=== PATIENT | female | born 1970 | race Caucasian/White ===

== ENCOUNTER 2021-05-07 09:40 | Emergency (ER) | payer OTHER ==
[2021-05-07 10:33] LABS: #Basophils 0.1 10x3/uL (0.0-0.2); #Eosinphils 0.2 10x3/uL (0.0-0.5); #Monocytes 0.5 10x3/uL (0.0-1.1); #Neutrophils 5.1 10x3/uL (1.5-8.4); %Basophils 0.7 % (0.0-2.0); %Eosinophils 2.8 % (0.0-6.0); %Lymphocytes 17.5 % (18.0-47.0); %Neutrophils 71.6 % (40.0-75.0); Hemoglobin 11.4 g/dL (12.0-15.5); Mean Corpuscular HGB CONC 31.5 g/dL (32.0-36.0); Mean Corpuscular Hemoglobin 25.3 pg (27.0-33.0); Mean Corpuscular Volume 80.3 fl (81.6-98.3); Mean Platelet Volume 8.7 fl (7.4-10.4); Platelet Count 336 10x3/uL (150-450); RBC Distribution Width 14.8 % (11.5-14.5); Red Blood Cell (RBC) Count 4.51 10x6/uL (3.90-5.03); White Blood Cell (WBC) Count 7.2 10x3/uL (3.5-10.5)
[2021-05-07 10:47] LABS: ALT (SGPT) Less than 6 U/L (8-55); AST (SGOT) 19 U/L (5-34); Alkaline Phosphatase 96 U/L (40-110); Anion Gap 15 mmol/L (10-20); BUN (Urea Nitrogen) 11 mg/dL (7.0-18.7); Bilirubin, Total 0.3 mg/dL (0.2-1.2); Calc. Creatinine Clearance 0 mL/min (70-130); Calcium 9.2 mg/dL (7.8-10.44); Carbon Dioxide 25 mmol/L (22-29); Chloride 100 mmol/L (98-107); Globulin 3.7 g/dL (2.4-3.5); Glucose 260 mg/dL (70-105); Potassium 3.9 mmol/L (3.5-5.1); Protein, Total 7.7 g/dL (6.0-8.3); Sodium 136 mmol/L (136-145)
[2021-05-07 20:20] LABS: SARS-CoV-2 PCR by NAA Not Detected (NotDetected)
== END 2021-05-07 13:10 | disposition home or self-care (01) ==
LOC: CSHERS 09:40
DX: J45.901 Unspecified asthma with (acute) exacerbation (principal); J06.9 Acute upper respiratory infection, unspecified; E11.9 Type 2 diabetes mellitus without complications; I10 Essential (primary) hypertension; Z20.822 Contact with and (suspected) exposure to COVID-19; Z79.84 Long term (current) use of oral hypoglycemic drugs; Z79.899 Other long term (current) drug therapy
CPT/HCPCS: 71045; 80053; 85025; 87804; 93005; 94640; J7620; U0003; U0005

== ENCOUNTER 2022-03-09 12:18 | Emergency (ER) | payer OTHER ==
[2022-03-09] MEDS ORDERED: Diazepam 5 MG TAB ONE (15:31)
[2022-03-09] MEDS ORDERED: Morphine 4 MG/ML VIAL ONE (15:32)
[2022-03-09 16:05] LABS: #Basophils 0.1 10x3/uL (0.0-0.2); #Eosinphils 0.1 10x3/uL (0.0-0.5); #Monocytes 0.5 10x3/uL (0.0-1.1); #Neutrophils 6.8 10x3/uL (1.5-8.4); %Basophils 0.5 % (0.0-2.0); %Eosinophils 0.8 % (0.0-6.0); %Lymphocytes 24.2 % (18.0-47.0); %Monocytes 5.3 % (0.0-10.0); %Neutrophils 68.8 % (40.0-75.0); Hemoglobin 10.7 g/dL (12.0-15.5); Mean Corpuscular HGB CONC 32.3 g/dL (32.0-36.0); Mean Corpuscular Hemoglobin 26.2 pg (27.0-33.0); Mean Corpuscular Volume 80.9 fl (81.6-98.3); Platelet Count 362 10x3/uL (150-450); RBC Distribution Width 13.4 % (11.5-14.5); Red Blood Cell (RBC) Count 4.09 10x6/uL (3.90-5.03)
[2022-03-09 16:16] LABS: ALT (SGPT) Less than 6 U/L (8-55); AST (SGOT) 11 U/L (5-34); Albumin 4.2 g/dL (3.5-5.0); Alkaline Phosphatase 81 U/L (40-110); Anion Gap 15 mmol/L (10-20); BUN (Urea Nitrogen) 15 mg/dL (7.0-18.7); Bilirubin, Total 0.3 mg/dL (0.2-1.2); Calc. Creatinine Clearance 0 mL/min (70-130); Calcium 9.8 mg/dL (7.8-10.44); Carbon Dioxide 26 mmol/L (22-29); Chloride 100 mmol/L (98-107); Estimated GFR 63; Globulin 3.4 g/dL (2.4-3.5); Glucose 182 mg/dL (70-105); Potassium 3.6 mmol/L (3.5-5.1); Protein, Total 7.6 g/dL (6.0-8.3); Sodium 137 mmol/L (136-145)
[2022-03-09] MEDS ORDERED: Acetaminophen 500 MG TAB ONE (18:13)
[2022-03-09] MEDS ORDERED: Ketorolac Tromethamine 30 MG/ML VIAL ONE (18:14)
[2022-03-09] MEDS ORDERED: Diazepam 10 MG/2 ML SYRINGE ONE (19:41)
== END 2022-03-09 23:32 | disposition home or self-care (01) ==
LOC: CSHERS 12:18
DX: M51.36 Other intervertebral disc degeneration, lumbar region (principal); R70.0 Elevated erythrocyte sedimentation rate; E11.9 Type 2 diabetes mellitus without complications; J45.909 Unspecified asthma, uncomplicated; I10 Essential (primary) hypertension
CPT/HCPCS: 72156; 72157; 72158; 80053; 85025; 85652; 86140; J1885; J2270; J3360

== ENCOUNTER 2022-03-16 14:20 | Inpatient (IN) | payer OTHER ==
[2022-03-16 15:14] LABS: ALT (SGPT) Less than 6 U/L (8-55); AST (SGOT) 10 U/L (5-34); Alkaline Phosphatase 77 U/L (40-110); Anion Gap 14 mmol/L (10-20); BUN (Urea Nitrogen) 12 mg/dL (7.0-18.7); Bilirubin, Total 0.3 mg/dL (0.2-1.2); Calc. Creatinine Clearance 0 mL/min (70-130); Calcium 9.3 mg/dL (7.8-10.44); Carbon Dioxide 24 mmol/L (22-29); Chloride 104 mmol/L (98-107); Estimated GFR 65; Globulin 2.9 g/dL (2.4-3.5); Glucose 253 mg/dL (70-105); Protein, Total 6.9 g/dL (6.0-8.3); Sodium 138 mmol/L (136-145)
[2022-03-16 15:24] LABS: #Basophils 0.1 10x3/uL (0.0-0.2); #Eosinphils 0.1 10x3/uL (0.0-0.5); #Monocytes 0.4 10x3/uL (0.0-1.1); #Neutrophils 4.1 10x3/uL (1.5-8.4); %Basophils 0.8 % (0.0-2.0); %Eosinophils 1.7 % (0.0-6.0); %Lymphocytes 28.6 % (18.0-47.0); %Monocytes 5.7 % (0.0-10.0); %Neutrophils 62.7 % (40.0-75.0); Hemoglobin 10.2 g/dL (12.0-15.5); Mean Corpuscular HGB CONC 31.9 g/dL (32.0-36.0); Mean Corpuscular Volume 81.4 fl (81.6-98.3); Mean Platelet Volume 9.4 fl (7.4-10.4); Platelet Count 339 10x3/uL (150-450); RBC Distribution Width 13.6 % (11.5-14.5); Red Blood Cell (RBC) Count 3.93 10x6/uL (3.90-5.03); White Blood Cell (WBC) Count 6.5 10x3/uL (3.5-10.5)
[2022-03-16 16:12] LABS: Bilirubin Neg (Negative); Blood, Urine Negative (Negative); Glucose, Urine (Dipstick) 250 mg/dL (Negative); Ketone, Urine Negative (Negative); Leukocyte Negative (Negative); Nitrite Negative (Negative); Protein, Urine (Dipstick) Negative (Neg-Trace); Urobilinogen Normal mg/dL (Less than 2)
[2022-03-16 16:13] LABS: Clarity Clear (Clear)
[2022-03-16] MEDS ORDERED: Guaifenesin DM 100-10/5 ML UDCUP PO PRN (17:14)
[2022-03-16] MEDS ORDERED: Ondansetron PF 4 MG/2 ML Vial IVP PRN (17:14)
[2022-03-16] MEDS ORDERED: Senokot S 8.6-50 MG TAB PO PRN (17:14)
[2022-03-16] MEDS ORDERED: Dextrose 50% Abboject 50 ML SYRINGE SLOW IVP PRN (17:41)
[2022-03-16] MEDS ORDERED: Dextrose 5% in Water 1,000 ML IV PRN (17:41)
[2022-03-16 19:59] VITALS: BMI 35.6
[2022-03-16] MEDS: Gabapentin 300 MG CAP PO SCH (20:55)
[2022-03-16] MEDS: Losartan Potassium 50 MG TAB PO SCH (20:56)
[2022-03-16] MEDS ORDERED: Famotidine/PF 20 mg/2ml Vial SLOW IVP SCH (21:00)
[2022-03-16] MEDS: HYDROcodone/Acetaminophen 5/325 mg Tablet PO PRN (21:05)
[2022-03-16 22:02] LABS: Bilirubin Neg (Negative); Blood, Urine Negative (Negative); Clarity Clear (Clear); Glucose, Urine (Dipstick) 100 mg/dL (Negative); Ketone, Urine Negative (Negative); Leukocyte Negative (Negative); Nitrite Negative (Negative); Protein, Urine (Dipstick) Negative (Neg-Trace); Specific Gravity, Urine 1.015 (1.005-1.030); Urobilinogen Normal mg/dL (Less than 2)
[2022-03-16 22:21] LABS: Bacteria/HPF Rare-Few HPF (None Seen); RBC/HPF 0-3 HPF (0-3); Squamous Epithelial 0-3 HPF (0-3); WBC/HPF 0-3 HPF (0-3)
[2022-03-16 23:49] LABS: SARS-CoV-2 NAA Rapid Test Not Detected (NotDetected)
[2022-03-17] MEDS: HYDROcodone/Acetaminophen 5/325 mg Tablet PO PRN ×3 (02:44→17:21)
[2022-03-17 04:35] LABS: #Basophils 0.1 10x3/uL (0.0-0.2); #Eosinphils 0.1 10x3/uL (0.0-0.5); #Monocytes 0.3 10x3/uL (0.0-1.1); #Neutrophils 3.3 10x3/uL (1.5-8.4); %Basophils 0.8 % (0.0-2.0); %Lymphocytes 36.9 % (18.0-47.0); %Monocytes 5.3 % (0.0-10.0); %Neutrophils 54.7 % (40.0-75.0); Hemoglobin 9.6 g/dL (12.0-15.5); Mean Corpuscular HGB CONC 31.7 g/dL (32.0-36.0); Mean Corpuscular Hemoglobin 25.8 pg (27.0-33.0); Mean Corpuscular Volume 81.5 fl (81.6-98.3); Mean Platelet Volume 8.8 fl (7.4-10.4); Platelet Count 270 10x3/uL (150-450); RBC Distribution Width 13.5 % (11.5-14.5); Red Blood Cell (RBC) Count 3.72 10x6/uL (3.90-5.03)
[2022-03-17 04:55] LABS: Anion Gap 13 mmol/L (10-20); BUN (Urea Nitrogen) 11 mg/dL (7.0-18.7); Calc. Creatinine Clearance 98 mL/min (70-130); Carbon Dioxide 27 mmol/L (22-29); Cardiac Risk 2.8 (Less than 4.5); Chloride 105 mmol/L (98-107); Cholesterol 128 mg/dl (< 200 Desired); Estimated GFR 72; Glucose 131 mg/dL (70-105); HDL Cholesterol 46 mg/dL (>60 Neg Risk); LDL Cholesterol, Calculated 64 mg/dL; Potassium 3.8 mmol/L (3.5-5.1); Sodium 141 mmol/L (136-145); Triglycerides 92 mg/dL (Less than 150)
[2022-03-17] MEDS: Gabapentin 300 MG CAP PO SCH ×4 (09:32→20:28)
[2022-03-17] MEDS: Enoxaparin Sodium 40 MG/0.4 ML SYRINGE SC SCH (09:32)
[2022-03-17] MEDS ORDERED: Lorazepam 2 MG/ML VIAL SLOW IVP PRN (10:30)
[2022-03-17] MEDS ORDERED: Lorazepam 2 MG/ML VIAL ONE (12:31)
[2022-03-17 13:36] LABS: Hemoglobin A1c 9.4 % (4.0-6.0)
[2022-03-17] MEDS ORDERED: hydrOXYzine 25 MG TAB PO PRN (14:21)
[2022-03-17] MEDS ORDERED: tiZANidine HCl 4 MG TAB PO PRN (14:27)
[2022-03-17] MEDS: metFORMIN 500 MG TAB PO SCH (16:37)
[2022-03-17] MEDS: HumaLOG 300 UNITS/3 ML VIAL SC PRN ×2 (17:20→20:33)
[2022-03-17] MEDS: Simvastatin 10 MG TAB PO SCH (20:28)
[2022-03-17] MEDS: glipiZIDE 5 MG TAB PO SCH (20:29)
[2022-03-17] MEDS: Losartan Potassium 50 MG TAB PO SCH (20:29)
[2022-03-18 06:07] LABS: Anion Gap 13 mmol/L (10-20); BUN (Urea Nitrogen) 11 mg/dL (7.0-18.7); Calc. Creatinine Clearance 104 mL/min (70-130); Carbon Dioxide 26 mmol/L (22-29); Chloride 105 mmol/L (98-107); Estimated GFR 78; Glucose 124 mg/dL (70-105); Potassium 3.7 mmol/L (3.5-5.1); Sodium 140 mmol/L (136-145)
[2022-03-18] MEDS: HYDROcodone/Acetaminophen 5/325 mg Tablet PO PRN ×3 (08:36→19:56)
[2022-03-18] MEDS: Gabapentin 300 MG CAP PO SCH ×4 (08:37→20:01)
[2022-03-18] MEDS: metFORMIN 500 MG TAB PO SCH ×4 (08:38→17:25)
[2022-03-18] MEDS: Hydrochlorothiazide 25 MG TAB PO SCH (08:38)
[2022-03-18] MEDS: glipiZIDE 5 MG TAB PO SCH ×2 (08:38→19:55)
[2022-03-18] MEDS: Multivit, Therapeutic 1 TAB PO SCH (08:38)
[2022-03-18] MEDS: Enoxaparin Sodium 40 MG/0.4 ML SYRINGE SC SCH (08:39)
[2022-03-18] MEDS: methylPREDNISolone Sod Succ 1,000 MG in Sodium Chloride 0.9% 250 ML 250 ML IVPB SCH (08:42)
[2022-03-18] MEDS ORDERED: methylPREDNISolone Sod Succ/PF 125 MG/2 ML VIAL IVP SCH (09:00)
[2022-03-18] MEDS ORDERED: Lidocaine 1% PF 5 ML VIAL ONE (09:27)
[2022-03-18] MEDS ORDERED: Sodium Bicarbonate 2.5 MEQ/5 ML VIAL ONE (09:27)
[2022-03-18] MEDS ORDERED: Midazolam HCl 2 mg/2 ml Vial ONE (10:56)
[2022-03-18] MEDS ORDERED: Fentanyl 100 MCG/2 ML VIAL ONE (10:56)
[2022-03-18] MEDS ORDERED: Lidocaine 1% (PF) 30 ML VIAL ONE (11:54)
[2022-03-18] MEDS: HumaLOG 300 UNITS/3 ML VIAL SC PRN ×3 (13:57→20:37)
[2022-03-18 13:59] LABS: CSF, Glucose 86 mg/dl (40-70); CSF, Protein 72 mg/dL (15-40)
[2022-03-18 14:27] LABS: CSF Source CSF; Clarity Clear (Clear)
[2022-03-18 14:28] LABS: CSF WBC/NonHematics Count-Man 1 /cu.mm (0-5); Tube # 1
[2022-03-18 14:29] LABS: CSF RBC Count - Manual 704 /cu.mm (None Seen)
[2022-03-18] MEDS ORDERED: hydrALAZINE 25 MG TAB PO SCH (17:45)
[2022-03-18] MEDS: hydrALAZINE 25 MG TAB PO SCH (19:54)
[2022-03-18] MEDS: Losartan Potassium 50 MG TAB PO SCH (19:54)
[2022-03-18] MEDS: Simvastatin 10 MG TAB PO SCH (19:57)
[2022-03-18] MEDS ORDERED: traMADol HCl 50 MG TAB PO SCH (23:00)
[2022-03-18] MEDS ORDERED: Pramipexole Di-HCl 0.25 MG TAB PO SCH (23:00)
[2022-03-19] MEDS: HumaLOG 300 UNITS/3 ML VIAL SC PRN ×5 (00:46→21:45)
[2022-03-19] MEDS: Multivit, Therapeutic 1 TAB PO SCH (09:55)
[2022-03-19] MEDS: Losartan Potassium 50 MG TAB PO SCH ×2 (09:55→21:40)
[2022-03-19] MEDS: hydrALAZINE 25 MG TAB PO SCH ×3 (09:55→21:38)
[2022-03-19] MEDS: methylPREDNISolone Sod Succ 1,000 MG in Sodium Chloride 0.9% 250 ML 250 ML IVPB SCH (09:56)
[2022-03-19] MEDS: metFORMIN 500 MG TAB PO SCH ×2 (09:56→16:40)
[2022-03-19] MEDS: Hydrochlorothiazide 25 MG TAB PO SCH (09:56)
[2022-03-19] MEDS: Gabapentin 300 MG CAP PO SCH ×4 (09:56→21:53)
[2022-03-19] MEDS: Enoxaparin Sodium 40 MG/0.4 ML SYRINGE SC SCH (09:56)
[2022-03-19] MEDS: glipiZIDE 5 MG TAB PO SCH ×3 (09:58→21:44)
[2022-03-19 10:15] LABS: DRVVT Confirm 38.3
[2022-03-19] MEDS: Simvastatin 10 MG TAB PO SCH (21:52)
[2022-03-20] MEDS: HumaLOG 300 UNITS/3 ML VIAL SC PRN ×4 (06:20→21:02)
[2022-03-20] MEDS: metFORMIN 500 MG TAB PO SCH ×2 (09:49→16:59)
[2022-03-20] MEDS: Enoxaparin Sodium 40 MG/0.4 ML SYRINGE SC SCH (09:49)
[2022-03-20] MEDS: glipiZIDE 5 MG TAB PO SCH ×2 (09:49→20:53)
[2022-03-20] MEDS: hydrALAZINE 25 MG TAB PO SCH ×3 (09:50→20:54)
[2022-03-20] MEDS: Hydrochlorothiazide 25 MG TAB PO SCH (09:50)
[2022-03-20] MEDS: Losartan Potassium 50 MG TAB PO SCH ×2 (09:50→20:55)
[2022-03-20] MEDS: Gabapentin 300 MG CAP PO SCH ×4 (09:50→20:53)
[2022-03-20] MEDS: Multivit, Therapeutic 1 TAB PO SCH (09:50)
[2022-03-20] MEDS: methylPREDNISolone Sod Succ 1,000 MG in Sodium Chloride 0.9% 250 ML 250 ML IVPB SCH (09:53)
[2022-03-20] MEDS ORDERED: Lantus 1000 UNITS/10 ML VIAL SC SCH ×2 (10:15→21:00)
[2022-03-20] MEDS: Simvastatin 10 MG TAB PO SCH (20:55)
[2022-03-21] MEDS: HumaLOG 300 UNITS/3 ML VIAL SC PRN ×2 (06:10→12:13)
[2022-03-21] MEDS ORDERED: hydrALAZINE 25 MG TAB PO SCH ×2 (07:00→15:00)
[2022-03-21] MEDS ORDERED: Losartan Potassium 50 MG TAB PO SCH ×2 (07:00→21:00)
[2022-03-21] MEDS ORDERED: Hydrochlorothiazide 25 MG TAB PO SCH (07:00)
[2022-03-21] MEDS: glipiZIDE 5 MG TAB PO SCH (08:47)
[2022-03-21] MEDS: metFORMIN 500 MG TAB PO SCH (08:47)
[2022-03-21] MEDS: Gabapentin 300 MG CAP PO SCH ×2 (08:47→12:13)
[2022-03-21] MEDS: Multivit, Therapeutic 1 TAB PO SCH (08:47)
[2022-03-21] MEDS: Enoxaparin Sodium 40 MG/0.4 ML SYRINGE SC SCH (08:47)
[2022-03-21] MEDS ORDERED: NIFEdipine XL 60 MG TAB PO SCH (11:45)
[2022-03-21] MEDS ORDERED: Labetalol HCl 100 MG/20 ML VIAL SLOW IVP SCH (11:45)
[2022-03-21 13:26] VITALS: BP 140/84; TEMP 97.5
[2022-03-22] MEDS ORDERED: NIFEdipine XL 60 MG TAB PO SCH (09:00)
[2022-03-22] MEDS ORDERED: Hydrochlorothiazide 25 MG TAB PO SCH (09:00)
[2022-03-23 13:47] LABS: ANA Symphony (Qualitative) Negative (Negative); ANA Symphony (Quantitative) 0.2 Ratio (< 0.7 Negative); dsDNA IgG Antibody 2.1 IU/mL (<10 Negative)
== END 2022-03-21 15:11 | disposition home or self-care (01) | DRG 60 ==
LOC: CSHERS 14:20 → CSHTELE 18:40 → OBSVTOIN 03-18 14:22
PROVIDERS: ADMIT Hospitalist; ATTEND Family Medicine
PROC: 009U3ZX Drainage of Spinal Canal, Percutaneous Approach, Diagnostic (ICD-10-PCS; principal; 2022-03-18)
PROC: B01B1ZZ Fluoroscopy of Spinal Cord using Low Osmolar Contrast (ICD-10-PCS; 2022-03-18)
DX: G37.9 Demyelinating disease of central nervous system, unspecified (principal); I10 Essential (primary) hypertension; Z20.822 Contact with and (suspected) exposure to COVID-19; E11.42 Type 2 diabetes mellitus with diabetic polyneuropathy; F43.10 Post-traumatic stress disorder, unspecified; F41.9 Anxiety disorder, unspecified; F32.A Depression, unspecified; Z91.09 Other allergy status, other than to drugs and biological substances; Z79.84 Long term (current) use of oral hypoglycemic drugs; Z79.899 Other long term (current) drug therapy; Z83.3 Family history of diabetes mellitus; G89.4 Chronic pain syndrome; G35 Multiple sclerosis; Z56.0 Unemployment, unspecified; Z90.710 Acquired absence of both cervix and uterus; K21.9 Gastro-esophageal reflux disease without esophagitis; M51.36 Other intervertebral disc degeneration, lumbar region
CPT/HCPCS: 36415; 36416; 62270; 70450; 70553; 77002; 80048; 80053; 80061; 81003; 82945; 83036; 83873; 83916; 84157; 84484; 85025; 85613; 86038; 86225; 89051; 93005; 96372; 96374; 96375; 99152; 99153; G0378; J1650; J1815; J2001; J2060; J2250; J2930; J3010; J7050; U0002

== ENCOUNTER 2022-04-26 13:11 | Inpatient (IN) | payer OTHER ==
[2022-04-26 13:47] LABS: #Eosinphils 0.1 10x3/uL (0.0-0.5); #Monocytes 0.3 10x3/uL (0.0-1.1); #Neutrophils 4.5 10x3/uL (1.5-8.4); %Basophils 0.6 % (0.0-2.0); %Eosinophils 1.2 % (0.0-6.0); %Lymphocytes 25.3 % (18.0-47.0); %Monocytes 4.8 % (0.0-10.0); %Neutrophils 67.5 % (40.0-75.0); Mean Corpuscular Hemoglobin 25.9 pg (27.0-33.0); Mean Corpuscular Volume 81.1 fl (81.6-98.3); Mean Platelet Volume 9.1 fl (7.4-10.4); Platelet Count 360 10x3/uL (150-450); RBC Distribution Width 14.7 % (11.5-14.5); Red Blood Cell (RBC) Count 4.24 10x6/uL (3.90-5.03); White Blood Cell (WBC) Count 6.6 10x3/uL (3.5-10.5)
[2022-04-26 13:51] LABS: Bilirubin 1+ (Negative); Blood, Urine 10 (Negative); Clarity Clear (Clear); Glucose, Urine (Dipstick) >=1000 mg/dL (Negative); Ketone, Urine 5 mg/dL (Negative); Leukocyte Negative (Negative); Nitrite Negative (Negative); Protein, Urine (Dipstick) 30 mg/dl (Neg-Trace); Urobilinogen Normal mg/dL (Less than 2)
[2022-04-26 13:58] LABS: Bacteria/HPF Rare-Few HPF (None Seen); WBC/HPF 0-3 HPF (0-3)
[2022-04-26 13:59] LABS: CRP (Inflammatory) 2.06 mg/dL (= or < 0.5); Magnesium 1.5 mg/dL (1.6-2.6)
[2022-04-26 14:01] LABS: ALT (SGPT) Less than 6 U/L (8-55); AST (SGOT) 15 U/L (5-34); Albumin 4.3 g/dL (3.5-5.0); Alkaline Phosphatase 79 U/L (40-110); Anion Gap 16 mmol/L (10-20); BUN (Urea Nitrogen) 14 mg/dL (7.0-18.7); Bilirubin, Total 0.3 mg/dL (0.2-1.2); Calc. Creatinine Clearance 0 mL/min (70-130); Calcium 9.6 mg/dL (7.8-10.44); Carbon Dioxide 23 mmol/L (22-29); Chloride 104 mmol/L (98-107); Estimated GFR 50; Glucose 364 mg/dL (70-105); Protein, Total 7.3 g/dL (6.0-8.3); Sodium 139 mmol/L (136-145)
[2022-04-26] MEDS ORDERED: Morphine 4 MG/ML VIAL ONE (15:19)
[2022-04-26] MEDS ORDERED: methylPREDNISolone Sod Succ 1 GM in Sodium Chloride 0.9% 100 ML IVPB SCH (15:45)
[2022-04-26] MEDS ORDERED: Dextrose 5% in Water 1,000 ML IV PRN ×2 (17:09→19:51)
[2022-04-26] MEDS ORDERED: HumaLOG 300 UNITS/3 ML VIAL SC PRN ×3 (17:09→19:51)
[2022-04-26] MEDS ORDERED: Dextrose 50% Abboject 50 ML SYRINGE SLOW IVP PRN ×2 (17:09→19:51)
[2022-04-26] MEDS ORDERED: Insulin Regular 300 UNITS/3 ML VIAL ONE (18:08)
[2022-04-26] MEDS ORDERED: Milk Of Magnesia 30 ML UDCUP PO PRN (19:38)
[2022-04-26] MEDS ORDERED: Acetaminophen 325 MG TAB PO PRN (19:38)
[2022-04-26] MEDS ORDERED: Insulin Regular 300 UNITS/3 ML VIAL SC PRN (19:51)
[2022-04-26] MEDS ORDERED: Magnesium 2 GM/50 ML(in water) 2 GM in Premix Bag 1 BAG IVPB SCH (20:00)
[2022-04-26] MEDS: NIFEdipine XL 60 MG TAB PO SCH (21:49)
[2022-04-26] MEDS: Gabapentin 300 MG CAP PO SCH (21:49)
[2022-04-26] MEDS: Simvastatin 10 MG TAB PO SCH (21:50)
[2022-04-26] MEDS: Losartan Potassium 50 MG TAB PO SCH (21:50)
[2022-04-26] MEDS: glipiZIDE 10 MG TAB PO SCH (22:15)
[2022-04-26 22:39] VITALS: BMI 35.6
[2022-04-26] MEDS ORDERED: Baclofen 10 MG TAB PO SCH (23:00)
[2022-04-27] MEDS ORDERED: Dextrose 50% Abboject 50 ML SYRINGE SLOW IVP PRN (02:41)
[2022-04-27] MEDS ORDERED: Dextrose 5% in Water 1,000 ML IV PRN (02:41)
[2022-04-27] MEDS ORDERED: Insulin Regular 300 UNITS/3 ML VIAL IVP SCH ×3 (02:45→04:30)
[2022-04-27] MEDS ORDERED: Sodium Chloride 0.9% 1,000 ML IV SCH (02:45)
[2022-04-27] MEDS: HumaLOG 300 UNITS/3 ML VIAL SC PRN ×6 (02:57→20:59)
[2022-04-27 05:17] LABS: ALT (SGPT) Less than 6 U/L (8-55); AST (SGOT) 11 U/L (5-34); Albumin 3.5 g/dL (3.5-5.0); Alkaline Phosphatase 74 U/L (40-110); Anion Gap 15 mmol/L (10-20); BUN (Urea Nitrogen) 16 mg/dL (7.0-18.7); Bilirubin, Total 0.2 mg/dL (0.2-1.2); Calc. Creatinine Clearance 76 mL/min (70-130); Calcium 8.7 mg/dL (7.8-10.44); Carbon Dioxide 19 mmol/L (22-29); Chloride 107 mmol/L (98-107); Estimated GFR 53; Globulin 2.8 g/dL (2.4-3.5); Glucose 382 mg/dL (70-105); Magnesium 1.8 mg/dL (1.6-2.6); Potassium 3.2 mmol/L (3.5-5.1); Protein, Total 6.3 g/dL (6.0-8.3); Sodium 138 mmol/L (136-145)
[2022-04-27] MEDS ORDERED: Sodium Chloride 0.9% 100 ML ONE (07:59)
[2022-04-27] MEDS ORDERED: Baclofen 10 MG TAB PO SCH ×2 (09:00→17:30)
[2022-04-27] MEDS ORDERED: methylPREDNISolone Sod Succ/PF 125 MG/2 ML VIAL IVP SCH (09:00)
[2022-04-27] MEDS: glipiZIDE 10 MG TAB PO SCH ×2 (09:28→20:58)
[2022-04-27] MEDS: metFORMIN 500 MG TAB PO SCH ×2 (09:28→18:00)
[2022-04-27] MEDS: Calcium Carbonate 600 MG TAB PO SCH (09:29)
[2022-04-27] MEDS: Aspirin 81 mg Enteric Coated Tablet PO SCH (09:29)
[2022-04-27] MEDS: Multivitamin W/ Minerals 1 TAB PO SCH (09:29)
[2022-04-27] MEDS: Gabapentin 300 MG CAP PO SCH ×4 (09:29→20:55)
[2022-04-27] MEDS: Losartan Potassium 50 MG TAB PO SCH ×2 (09:30→20:56)
[2022-04-27] MEDS: Cholecalciferol 1,000 UNITS (25 MCG) TAB PO SCH (09:30)
[2022-04-27] MEDS: methylPREDNISolone Sod Succ 1 GM in Sodium Chloride 0.9% 100 ML IVPB SCH (09:30)
[2022-04-27] MEDS: Hydrochlorothiazide 25 MG TAB PO SCH (09:30)
[2022-04-27] MEDS ORDERED: Potassium Chloride 20 MEQ TAB PO SCH (12:30)
[2022-04-27] MEDS ORDERED: Lantus 1000 UNITS/10 ML VIAL SC SCH (12:30)
[2022-04-27 12:42] LABS: Hemoglobin A1c 10.3 % (4.0-6.0)
[2022-04-27] MEDS: NIFEdipine XL 60 MG TAB PO SCH (20:57)
[2022-04-27] MEDS: Baclofen 10 MG TAB PO SCH (20:57)
[2022-04-27] MEDS: Simvastatin 10 MG TAB PO SCH (20:57)
[2022-04-28] MEDS: HumaLOG 300 UNITS/3 ML VIAL SC PRN ×4 (00:32→20:40)
[2022-04-28] MEDS: metFORMIN 500 MG TAB PO SCH ×2 (09:33→17:48)
[2022-04-28] MEDS: Calcium Carbonate 600 MG TAB PO SCH (09:33)
[2022-04-28] MEDS: glipiZIDE 10 MG TAB PO SCH ×2 (09:33→20:38)
[2022-04-28] MEDS: Aspirin 81 mg Enteric Coated Tablet PO SCH (09:34)
[2022-04-28] MEDS: methylPREDNISolone Sod Succ 1 GM in Sodium Chloride 0.9% 100 ML IVPB SCH (09:34)
[2022-04-28] MEDS: Losartan Potassium 50 MG TAB PO SCH ×2 (09:34→20:37)
[2022-04-28] MEDS: Cholecalciferol 1,000 UNITS (25 MCG) TAB PO SCH (09:34)
[2022-04-28] MEDS: Multivitamin W/ Minerals 1 TAB PO SCH (09:34)
[2022-04-28] MEDS: Hydrochlorothiazide 25 MG TAB PO SCH (09:34)
[2022-04-28] MEDS: Gabapentin 300 MG CAP PO SCH ×4 (09:34→20:38)
[2022-04-28] MEDS: Baclofen 10 MG TAB PO SCH ×3 (09:34→20:38)
[2022-04-28] MEDS: NIFEdipine XL 60 MG TAB PO SCH (20:37)
[2022-04-28] MEDS: Simvastatin 10 MG TAB PO SCH (20:37)
[2022-04-28] MEDS ORDERED: Lantus 1000 UNITS/10 ML VIAL SC SCH (21:00)
[2022-04-29] MEDS: HumaLOG 300 UNITS/3 ML VIAL SC PRN ×2 (00:15→13:19)
[2022-04-29 06:17] LABS: Anion Gap 15 mmol/L (10-20); BUN (Urea Nitrogen) 22 mg/dL (7.0-18.7); Calc. Creatinine Clearance 79 mL/min (70-130); Calcium 9.5 mg/dL (7.8-10.44); Carbon Dioxide 27 mmol/L (22-29); Chloride 105 mmol/L (98-107); Estimated GFR 56; Glucose 181 mg/dL (70-105); Potassium 3.8 mmol/L (3.5-5.1); Sodium 143 mmol/L (136-145)
[2022-04-29] MEDS ORDERED: Magnevist 469MG/ML 20 ML VIAL ONE (08:32)
[2022-04-29] MEDS ORDERED: ALPRAZolam 0.25 MG TAB PO PRN (09:41)
[2022-04-29] MEDS: Aspirin 81 mg Enteric Coated Tablet PO SCH (10:13)
[2022-04-29] MEDS: Calcium Carbonate 600 MG TAB PO SCH (10:13)
[2022-04-29] MEDS: Gabapentin 300 MG CAP PO SCH ×2 (10:13→13:17)
[2022-04-29] MEDS: Cholecalciferol 1,000 UNITS (25 MCG) TAB PO SCH (10:13)
[2022-04-29] MEDS: glipiZIDE 10 MG TAB PO SCH (10:13)
[2022-04-29] MEDS: Losartan Potassium 50 MG TAB PO SCH (10:14)
[2022-04-29] MEDS: Multivitamin W/ Minerals 1 TAB PO SCH (10:14)
[2022-04-29] MEDS: metFORMIN 500 MG TAB PO SCH (10:14)
[2022-04-29] MEDS: Baclofen 10 MG TAB PO SCH (10:14)
[2022-04-29] MEDS: Hydrochlorothiazide 25 MG TAB PO SCH (10:14)
[2022-04-29 12:51] VITALS: BP 195/86; TEMP 98.4
[2022-04-29] MEDS: methylPREDNISolone Sod Succ 1 GM in Sodium Chloride 0.9% 100 ML IVPB SCH (13:27)
== END 2022-04-29 15:13 | disposition home or self-care (01) | DRG 59 ==
LOC: CSHERS 13:11 → CSHTELE 16:40 → OBSVTOIN 19:38
PROVIDERS: ADMIT Internal Medicine; ATTEND Family Medicine
DX: G35 Multiple sclerosis (principal); N17.9 Acute kidney failure, unspecified; D50.9 Iron deficiency anemia, unspecified; E66.9 Obesity, unspecified; I10 Essential (primary) hypertension; E11.9 Type 2 diabetes mellitus without complications; E78.5 Hyperlipidemia, unspecified; E87.6 Hypokalemia; K21.9 Gastro-esophageal reflux disease without esophagitis; E83.42 Hypomagnesemia; Z90.710 Acquired absence of both cervix and uterus; Z80.9 Family history of malignant neoplasm, unspecified; Z91.048 Other nonmedicinal substance allergy status; Z79.84 Long term (current) use of oral hypoglycemic drugs; Z79.899 Other long term (current) drug therapy; Z79.82 Long term (current) use of aspirin; Z82.3 Family history of stroke; Z68.35 Body mass index [BMI] 35.0-35.9, adult
CPT/HCPCS: 36415; 36416; 70450; 70553; 80048; 80053; 81003; 81015; 83036; 83605; 83735; 84484; 85025; 86140; 93005; 94760; 96374; 96375; A9579; G0378; J1650; J1815; J2270; J2930; J3475; J3490; J7050

== ENCOUNTER 2024-11-19 20:29 | Emergency (ER) | payer MEDICAID | END 2024-11-19 21:50 | disposition home or self-care (01) | LOC: CSHERS 20:29 | DX: R20.8 Other disturbances of skin sensation (principal); T36.8X5A Adverse effect of other systemic antibiotics, initial encounter; E11.9 Type 2 diabetes mellitus without complications; I10 Essential (primary) hypertension; Z79.84 Long term (current) use of oral hypoglycemic drugs; Z79.899 Other long term (current) drug therapy | CPT/HCPCS: 99283 ==